=== PATIENT | male | born 1960 | race Caucasian/White ===

== ENCOUNTER 2022-07-13 08:28 | Day surgery (SDC) | payer OTHER ==
[2022-07-12 12:41] LABS: COVID AG,FIA SOURCE NASAL SWAB
[~2022-07-13] VITALS: Ht 188 cm; Wt 100.0 kg
[2022-07-13] MEDS ORDERED: LIDOCAINE/PF 2% 5 ML VIAL IM ONE (08:29)
[2022-07-13] MEDS ORDERED: PROPOFOL 1% 20 ML VIAL IVP ONE (08:29)
[2022-07-13] MEDS ORDERED: SODIUM CHLORIDE 0.9% 1,000 ML IV ONE (09:00)
[2022-07-13] MEDS ORDERED: SODIUM CHLORIDE 0.9% 1,000 ML ONE (09:48)
[2022-07-13] MEDS ORDERED: ATOR20TA86 PO (10:01)
[2022-07-13] MEDS ORDERED: CARV12 PO (10:01)
[2022-07-13] MEDS ORDERED: FURO20 PO (10:01)
[2022-07-13] MEDS ORDERED: SACU1TAB PO (10:01)
[2022-07-13] MEDS ORDERED: CARV25 PO (10:01)
[2022-07-13] MEDS ORDERED: APIX5TAB PO (10:01)
[2022-07-13] MEDS ORDERED: SPIR-37 PO (10:01)
== END 2022-07-13 14:20 | disposition home or self-care (01) ==
LOC: SURGERY 08:28
PROVIDERS: ATTEND Internal Medicine Gastroenterology
DX: Z09 Encounter for follow-up examination after completed treatment for conditions other than malignant neoplasm (principal); D12.5 Benign neoplasm of sigmoid colon; D12.4 Benign neoplasm of descending colon; K64.0 First degree hemorrhoids; K57.30 Diverticulosis of large intestine without perforation or abscess without bleeding; Z20.822 Contact with and (suspected) exposure to COVID-19; Z79.899 Other long term (current) drug therapy; I10 Essential (primary) hypertension; I48.91 Unspecified atrial fibrillation; Z98.890 Other specified postprocedural states
CPT/HCPCS: 87426; 93005; 45385; 45380; C9803; C1769; J2704; J3490; J7030